=== PATIENT | female | born 1990 | race American Indian/Alaskan Native ===

== ENCOUNTER 2017-11-03 01:00 | Emergency (ER) | payer OTHER ==
[2017-11-03 01:17] VITALS: BP 126/61
[2017-11-03 01:55] LABS: Basophils # (Auto) 0.1 K/mm3 (0.0-0.1); Basophils % (Auto) 0.4 % (0.0-1.8); Eosinophils # (Auto) 0.1 K/mm3 (0.0-0.4); Eosinophils % (Auto) 0.9 % (0.0-4.3); Hematocrit 36.7 % (30.3-42.9); Hemoglobin 12.7 gm/dl (10.1-14.3); Lymphocytes # (Auto) 2.3 K/mm3 (1.2-5.4); Lymphocytes % (Auto) 16.9 % (13.4-35.0); Mean Corpuscular HGB Conc 35 % (30-34); Mean Corpuscular Hemoglobin 32 pg (28-32); Mean Corpuscular Volume 93 fl (79-97); Monocytes # (Auto) 0.8 K/mm3 (0.0-0.8); Monocytes % (Auto) 5.8 % (0.0-7.3); Platelet Count 152 K/mm3 (140-440); Red Blood Count 3.93 M/mm3 (3.65-5.03); Red Cell Distribution Width 12.1 % (13.2-15.2)
[2017-11-03 02:07] LABS: Bilirubin,Urine NEG (Negative); Blood,Urine LG (Negative); Color,Urine Red (Yellow); Mucus,Urine FEW /HPF; Nitrite,Urine NEG (Negative); Protein,Urine <15 mg/dL mg/dL (Negative); RBC,Urine < 1.0 /HPF (0.0-6.0); Urobilinogen,Urine < 2.0 mg/dL (<2.0)
--- NOTE | 2017-11-03 02:59 | Ultrasound Report ---
FINAL REPORT EXAM: US OB TRANSVAGINAL HISTORY: Vaginal bleeding 6 wks TECHNIQUE: Transvaginal imaging was obtained the pelvis including Doppler interrogation of the adnexa and uterus. FINDINGS: The uterus is retroverted measuring 9.8 cm x 6.5 cm x 7.5 cm. Within the uterus is a gestational sac which contains a yolk sac and pole. The crown-rump length of the pole is 4.1 millimeters corresponding to a 6 week 1 day IUP. The heart rate is 122 BPM. Adjacent to the gestational sac is a hypoechoic area compatible with a moderate sized subchorionic hemorrhage. Free fluid is not seen. The maternal left ovary is normal size and echotexture measuring 3.7 cm x 2.2 cm x 1.9 cm. The right ovary measures 4.4 cm x 3.8 cm x 2.9 cm. Within the right ovary is a cyst measuring 2.1 cm in diameter compatible with corpus luteum cyst. IMPRESSION: Single viable IUP 6 weeks 1 day. heart is 122 BPM. Moderate size subchorionic hemorrhage. 2.1 cm cyst the right ovary most likely representing a corpus luteum cyst
--- NOTE | 2017-11-03 03:00 | Ultrasound Report ---
FINAL REPORT EXAM: US OB < = 14 WEEKS FETUS HISTORY: Vaginal bleeding 6 wks TECHNIQUE: Transabdominal imaging was obtained of the pelvis. FINDINGS: The uterus measures 9.8 cm x 6.5 cm x 7.5 cm. Within the uterus is a gestational sac which contains a yolk sac and embryo. The crown-rump length is 4.1 millimeters corresponding to a 6 week 1 day IUP. The heart is 122 BPM. Adjacent to the gestational sac is a hypoechoic area corresponding to a moderate sized subchorionic hemorrhage. Free fluid is not seen. The maternal left ovary is normal size contour and echotexture measuring 3.7 cm x 2.2 cm x 1.9 cm. The right ovary measures 4.4 cm x 3.8 cm x 2.9 cm. With the right ovary is a cyst measuring 2.1 cm in diameter. IMPRESSION: Single viable IUP, 6 weeks 1 day. heart is 122 bpm. Moderate size subchorionic hemorrhage. 2.1 cm cyst in the right ovary consistent with a corpus luteum cyst.
== END 2017-11-03 02:30 | disposition left against medical advice (07) ==
LOC: ED 01:00
DX: O46.8X1 Other antepartum hemorrhage, first trimester (principal); Z3A.01 Less than 8 weeks gestation of pregnancy
CPT/HCPCS: 36415; 76801; 76817; 81001; 84702; 85025; 86850; 86900; 86901

== ENCOUNTER 2020-03-31 05:05 | Emergency (ER) | payer MEDICAID ==
[2020-03-31 05:37] LABS: Basophils # (Auto) 0.1 K/mm3 (0.0-0.1); Basophils % (Auto) 0.5 % (0.0-1.8); Eosinophils # (Auto) 0.1 K/mm3 (0.0-0.4); Eosinophils % (Auto) 1.5 % (0.0-4.3); Hematocrit 36.1 % (30.3-42.9); Hemoglobin 12.6 gm/dl (10.1-14.3); Lymphocytes # (Auto) 2.4 K/mm3 (1.2-5.4); Lymphocytes % (Auto) 24.4 % (13.4-35.0); Mean Corpuscular HGB Conc 35 % (30-34); Mean Corpuscular Volume 94 fl (79-97); Monocytes # (Auto) 0.6 K/mm3 (0.0-0.8); Monocytes % (Auto) 6.3 % (0.0-7.3); Platelet Count 136 K/mm3 (140-440); Red Blood Count 3.84 M/mm3 (3.65-5.03); Red Cell Distribution Width 11.7 % (13.2-15.2)
[2020-03-31] MEDS ORDERED: SODIUM CHLORIDE 0.9% 1000 ML 1,000 ML ONE (05:45)
[2020-03-31] MEDS ORDERED: SODIUM CHLORIDE 0.9% 1000 ML 1,000 ML IV ONE (05:47)
[2020-03-31 06:10] LABS: Bilirubin,Urine NEG (Negative); Blood,Urine MOD (Negative); Color,Urine Yellow (Yellow); Mucus,Urine 1+ /HPF; Protein,Urine <15 mg/dL mg/dL (Negative); Urobilinogen,Urine < 2.0 mg/dL (<2.0)
--- NOTE | 2020-03-31 07:25 | Ultrasound Report ---
ULTRASOUND OBSTETRIC Indication: VAG BLEEDING Findings: There is a single, living intrauterine . [place]-rump length = 4.2 cm = 11 weeks, 1 day(s). heart rate is 161 beats per minute. The ovaries are normal. There is no free fluid. Impression: Single, living intrauterine with estimated sonographic age of 11 weeks, 1 day(s). Signer Name: Abraham Sandy MD Signed: 03/31/2020 7:20 AM Workstation Name: [employer]
--- NOTE | 2020-03-31 07:31 | Emergency Department Report ---
ED HPI - General Chief complaint: Vaginal Bleeding Stated complaint: VAGINAL BLEEDING(11 WEEKS PREG) Time Seen by Provider: 03/31/20 06:22 Source: patient Mode of arrival: Ambulatory Limitations: No Limitations - History of Present Illness Initial comments: 29-year female presents to the hospital currently 11 weeks complaining of waking up this morning with vaginal bleeding. Patient has some mild vaginal bleeding earlier today and now has some residual spotting. Patient having abdominal bloating feeling and back pressure but denies cramping or pain. This is her fifth . She has 1 living child and history of 2 miscarriage and 1 . She has initiated care with my [facility] DESIGN [facility]INEER and has had 2 previous ultrasound showing IUP during this . Patient is Rh- - Related Data Previous Rx's Medication Instructions Recorded Last Taken Type traMADoL [Ultram 50 MG tab] 50 mg PO Q6HR PRN #16 tablet 08/29/15 Unknown Rx Allergies Allergy/AdvReac Type Severity Reaction Status Date / Time No Known Allergies Allergy Verified 08/28/15 23:07 ED Review of Systems ROS: Stated complaint: VAGINAL BLEEDING(11 WEEKS PREG) Other details as noted in HPI Comment: All other systems reviewed and negative ED Past Medical Hx - Past Medical History Previous Medical History?: No Additional medical history: RH Negative - Surgical History Past Surgical History?: No - Social History Smoking Status: Never Smoker Substance Use Type: None - Medications Home Medications: Home Medications Medication Instructions Recorded Confirmed Last Taken Type traMADoL [Ultram 50 MG tab] 50 mg PO Q6HR PRN #16 tablet 08/29/15 Unknown Rx ED Physical Exam - General Limitations: No Limitations - Other Other exam information: General: No acute distress Head: Atraumatic Eyes: normal appearance ENT: Moist mucous membranes Neck: Normal appearance, no midline tenderness Chest: Clear to auscultation bilaterally CV: Regular rate and rhythm Abdomen: Soft, normal bowel sounds, nontender, nondistended, no rebound or guarding Back: Normal inspection Extremity: Normal inspection, full range of motion Neuro: Alert O x 3, no facial asymmetry, speech clear, no gross motor sensory deficit Psych: Appropriate behavior Skin: No rash ED Course Vital Signs 03/31/20 03/31/20 03/31/20 05:10 05:34 06:12 Temperature 98.7 F Pulse Rate 70 83 78 Respiratory 18 18 16 Rate Blood Pressure 98/48 Blood Pressure 86/49 114/61 [Right] O2 Sat by Pulse 98 100 100 Oximetry ED Medical Decision Making - Lab Data Result diagrams: 03/31/20 05:22 Lab Results 03/31/20 03/31/20 03/31/20 Range/Units 05:22 05:22 05:22 WBC 9.7 (4.5-11.0) K/mm3 RBC 3.84 (3.65-5.03) M/mm3 Hgb 12.6 (10.1-14.3) gm/dl Hct 36.1 (30.3-42.9) % MCV 94 (79-97) fl MCH 33 H (28-32) pg MCHC 35 H (30-34) % RDW 11.7 L (13.2-15.2) % Plt Count 136 L (140-440) K/mm3 Lymph % (Auto) 24.4 (13.4-35.0) % Mcd[place]ough % (Auto) 6.3 (0.0-7.3) % Eos % (Auto) 1.5 (0.0-4.3) % Baso % (Auto) 0.5 (0.0-1.8) % Lymph # 2.4 (1.2-5.4) K/mm3 Mcdonough # 0.6 (0.0-0.8) K/mm3 Eos # 0.1 (0.0-0.4) K/mm3 Baso # 0.1 (0.0-0.1) K/mm3 Seg Neutrophils % 67.3 (40.0-70.0) % Seg Neutrophils # 6.5 (1.8-7.7) K/mm3 HCG, Quant 81533 H (0-4) mIU/mL Urine Color (Yellow) Urine Turbidity (Clear) Urine pH (5.0-7.0) Ur Specific [place] (1.003-1.030) Urine Protein (Negative) mg/dL Urine Glucose (UA) (Negative) mg/dL Urine Ketones (Negative) mg/dL Urine Blood (Negative) Urine Nitrite (Negative) Urine Bilirubin (Negative) Urine Urobilinogen (<2.0) mg/dL Ur Leukocyte Esterase (Negative) Urine WBC (Auto) (0.0-6.0) /HPF Urine RBC (Auto) (0.0-6.0) /HPF U Epithel Cells (Auto) (0-13.0) /HPF Urine Mucus /HPF Blood Type B NEGATIVE Antibody Screen Negative 03/31/20 Range/Units Unknown WBC (4.5-11.0) K/mm3 RBC (3.65-5.03) M/mm3 Hgb (10.1-14.3) gm/dl Hct (30.3-42.9) % MCV (79-97) fl MCH (28-32) pg MCHC (30-34) % RDW (13.2-15.2) % Plt Count (140-440) K/mm3 Lymph % (Auto) (13.4-35.0) % Mcd[place]ough % (Auto) (0.0-7.3) % Eos % (Auto) (0.0-4.3) % Baso % (Auto) (0.0-1.8) % Lymph # (1.2-5.4) K/mm3 Mcdonough # (0.0-0.8) K/mm3 Eos # (0.0-0.4) K/mm3 Baso # (0.0-0.1) K/mm3 Seg Neutrophils % (40.0-70.0) % Seg Neutrophils # (1.8-7.7) K/mm3 HCG, Quant (0-4) mIU/mL Urine Color Yellow (Yellow) Urine Turbidity Clear (Clear) Urine pH 5.0 (5.0-7.0) Ur Specific [place] 1.020 (1.003-1.030) Urine Protein <15 mg/dl (Negative) mg/dL Urine Glucose (UA) Neg (Negative) mg/dL Urine Ketones Neg (Negative) mg/dL Urine Blood Mod (Negative) Urine Nitrite Neg (Negative) Urine Bilirubin Neg (Negative) Urine Urobilinogen < 2.0 (<2.0) mg/dL Ur Leukocyte Esterase Neg (Negative) Urine WBC (Auto) 2.0 (0.0-6.0) /HPF Urine RBC (Auto) 9.0 (0.0-6.0) /HPF U Epithel Cells (Auto) 1.0 (0-13.0) /HPF Urine Mucus 1+ /HPF Blood Type Antibody Screen - Radiology Data Radiology results: report reviewed ULTRASOUND OBSTETRIC Indication: VAG BLEEDING Findings: There is a single, living intrauterine . [place]-rump length = 4.2 cm = 11 weeks, 1 day(s). heart rate is 161 beats per minute. The ovaries are normal. There is no free fluid. Impression: Single, living intrauterine with estimated sonographic age of 11 weeks, 1 day(s). - Medical Decision Making Patient had vaginal bleeding this morning which has decreased. Ultrasound confirms IUP. Patient received RhoGam in the ED. Provide a copy of labs ultrasound report for outpatient follow-up with [facility] Critical Care Time: No Critical care attestation.: If time is entered above; I have spent that time in minutes in the direct care of this critically ill patient, excluding procedure time. ED Disposition Clinical Impression: Threatened miscarriage, Rh negative status during , 11 weeks gestation of Disposition: - TO HOME OR SELFCARE Is pt being admited?: No Condition: Stable Instructions: Rho(D) Immune Globulin (Injection), Threatened Miscarriage (ED) Additional Instructions: Pelvic rest i.e. no sex is recommended. Follow-up with with my [facility] DESIGN ENG[facility]ER. Take the copy of the results provided to your follow-up visit. Return if symptoms worsen as indicated by your discharge instructions. Referrals: [facility] [Provider Group] - 3-5 Days Time of Disposition: 08:20
[2020-03-31 09:09] VITALS: BP 107/57
== END 2020-03-31 10:00 | disposition home or self-care (01) ==
LOC: ED 05:05
DX: O20.0 Threatened abortion (principal); Z3A.11 11 weeks gestation of pregnancy; O36.0191 Maternal care for anti-D [Rh] antibodies, unspecified trimester, fetus 1; Z79.899 Other long term (current) drug therapy
CPT/HCPCS: 36415; 76801; 81001; 84702; 85025; 86850; 86900; 86901; 96372; 99284; J2790; J7030

== ENCOUNTER 2020-10-21 06:52 | Inpatient (IN) | payer MEDICAID ==
[2020-10-21] MEDS ORDERED: LACTATED RINGERS 1,000 ML ONE (07:20)
[2020-10-21] MEDS ORDERED: OXYTOCIN DRIP 30,000 MILLIUNITS/500 ML BAG IV ONE (07:20)
[2020-10-21] MEDS ORDERED: fentaNYL 100 MCG/2 ML INJ ONE (07:42)
[2020-10-21] MEDS ORDERED: ePHEDrine SULFATE 50 MG/1 ML INJ IV PRN (07:44)
[2020-10-21] MEDS ORDERED: NalbUPHINE 10 MG/1 ML INJ IV PRN (07:44)
[2020-10-21] MEDS ORDERED: fentaNYL 100 MCG/2 ML INJ IV PRN (07:44)
[2020-10-21] MEDS ORDERED: LIDOCAINE (2%) 20 MG/1 ML VIAL 20 ML MDV INFILTRATI ONE (07:44)
[2020-10-21] MEDS ORDERED: NALOXONE 0.4 MG/1 ML INJ IV PRN (07:44)
[2020-10-21] MEDS ORDERED: ACETAMINOPHEN 325 MG TAB PO PRN (07:44)
[2020-10-21] MEDS ORDERED: PROMETHAZINE 25 MG TAB PO PRN (07:44)
[2020-10-21] MEDS ORDERED: TERBUTALINE 1 MG/1 ML INJ SUB-Q PRN (07:44)
[2020-10-21] MEDS ORDERED: BUTORPHANOL 2 MG/1 ML INJ IV PRN ×2 (07:44)
[2020-10-21] MEDS ORDERED: LACTATED RINGERS 1,000 ML IV SCH (07:45)
[2020-10-21] MEDS ORDERED: OXYTOCIN DRIP 30 UNITS/500 ML BAG IV SCH ×3 (08:00→11:31)
[2020-10-21 08:24] LABS: Hematocrit 34.8 % (30.3-42.9); Hemoglobin 12.2 gm/dl (10.1-14.3); Mean Corpuscular HGB Conc 35 % (30-34); Mean Corpuscular Volume 94 fl (79-97); Platelet Count 87 K/mm3 (140-440); Red Blood Count 3.69 M/mm3 (3.65-5.03)
--- NOTE | 2020-10-21 08:44 | History and Physical Report ---
History of Present Illness Date of examination: 10/21/20 Chief complaint: labor History of present illness: EDC Confirmation: 10/23/2020 Past History : 6 Term Births: 1 Premature Births: 0 Living Children: 1 Para: 1 Mult. Births: 0 Prev : 0 Aborta: 0 Elect. Ab: 2 Spont. Ab: 2 Ectopics: 0 # 1 Delivery date: 2009 Weeks Gestation: term labor: no Delivery type: Anesthesia type: none Delivery location: [facility] Sex: Male weight: 8-6 Risk Factors: Smoked Tobacco Use: Never smoker Smokeless Tobacco Use: Never Passive smoke exposure: no Drug use: no HIV high-risk behavior: no Alcohol use: no Seatbelt use: preg-reimbursement counselor % Sun Exposure: rarely Family History Risk Factors: Family History of NH in females < 65 years old: no Dietary Counseling: pn yes Past Medical History: Reviewed history and no changes required: Negative Past Medical History Past Surgical History: Reviewed history and no changes required: D&C X 2 Past Medical History Anesthesia Complications: negative Anemia: negative Autoimmune Disorder: negative Bleeding Disorder: negative Blood Transfusions: negative Breast Disease: negative Diabetes: negative Heart Disease: negative Hypertension: negative Hepatitis/Liver Disease: negative Kidney Disease/UTI: negative Neurologic/Epilepsy/Migraines: negative Phlebitis/Varicosities: negative Psychiatric: negative Pulmonary Disease/Asthma: negative Thyroid Disease: negative Hospitalizations: negative Surgery (Non-plant custodian): D&C X 2 Abnormal PAP: negative JULIANNA Exposure: negative Infertility: negative Uterine Anomaly: negative Uterine Surgery (not C/S): negative Other Gynecologic Problems: negative Family Hx: Cancer, High blood pressure Infection History Hx of STD: gonorrhea HIV Risk Eval: no Hepatitis B Risk Eval: low risk Personal hx. of genital herpes: no Partner hx. of genital herpes: no Rash, Viral, or Febrile illness since last LMP? no Varicella/Chicken Pox Status: Previous Disease TB Risk: no Genetic History Congenital Heart Defect: Mom: no Dad: no [place] Disease: Mom: no Dad: no Thalassemia Mom: no Dad: no Neural Tube Defect Mom: no Dad: no Down's Syndrome Mom: no Dad: no Smooth-Sachs Mom: no Dad: no Sickle Cell Disease/Trait Mom: no Dad: no Hemophilia Mom: no Dad: no Muscular Dystrophy Mom: no Dad: no Cystic Fibrosis Mom: no Dad: no [place] Chorea Mom: no Dad: no Mental Retardation Mom: no Dad: no Fragile X Mom: no Dad: no Other Genetic/Chromosomal Disorder Mom: no Dad: no Child w/other defect Mom: no Dad: no Enviromental Exposures Xray Exposure: no Medication, drug, or alcohol use since LMP: no Chemical/Other Exposure: no Exposure to Cat Liter: no Hx of Parvovirus (Fifth Disease): no Occupational Exposure to Children: none Current Allergies: No known allergies Past History Past Medical History: other (see HPI) Past Surgical History: other (see HPI) CRAB PICKER History: other (see HPI) Family/Genetic History: other (see HPI) Social history: no significant social history - Obstetrical History Expected Date of Delivery: 10/23/20 Actual Gestation: 39 Week(s) 5 Day(s) : 6 Para: 1 Hx # Term Pregnancies: 1 Number of Pregnancies: 0 Spontaneous Abortions: 2 Induced : 2 Number of Living Children: 1 Medications and Allergies Allergies Allergy/AdvReac Type Severity Reaction Status Date / Time No Known Allergies Allergy Verified 08/28/15 23:07 Home Medications Medication Instructions Recorded Confirmed Last Taken Type traMADoL [Ultram 50 MG tab] 50 mg PO Q6HR PRN #16 tablet 08/29/15 Unknown Rx Active Meds: Active Medications Acetaminophen (Acetaminophen 325 Mg Tab) 650 mg PO Q4H PRN PRN Reason: Pain, Mild (1-3) Butorphanol Tartrate (Butorphanol 2 Mg/1 Ml Inj) 1 mg IV Q2H PRN PRN Reason: Pain, Moderate(4-6) LABOR PAIN Butorphanol Tartrate (Butorphanol 2 Mg/1 Ml Inj) 2 mg IV Q2H PRN PRN Reason: Pain , Severe (7-10) Ephedrine Sulfate (Ephedrine Sulfate 50 Mg/1 Ml Inj) 10 mg IV Q2M PRN PRN Reason: Hypotension Fentanyl (Fentanyl 100 Mcg/2 Ml Inj) 100 mcg IV Q2H PRN PRN Reason: Pain,Severe (7-10) LABOR PAIN Oxytocin/Sodium Chloride (Pitocin/Ns 30 Unit/500ml) 30 units in 500 mls @ 2 ml s/hr IV TITR TREVOR; Protocol Lactated Ringer's (Lactated Ringers) 1,000 mls @ 125 mls/hr IV DIRECT TREVOR Oxytocin/Sodium Chloride (Pitocin/Ns 30 Unit/500ml) 30 units in 500 mls @ 40 mls/hr IV TITR TREVOR; Protocol Stop: 10/21/20 20:29 Ampicillin Sodium (Ampicillin/Ns 1 Gm/50 Ml) 1 gm in 50 mls @ 100 mls/hr IV Q4H [facility]; Protocol Mineral Oil (Mineral Oil 30 Ml Oral Liqd) 30 ml PO QHS PRN PRN Reason: Constipation Nalbuphine HCl (Nalbuphine 10 Mg/1 Ml Inj) 10 mg IV Q2H PRN PRN Reason: Pain, Moderate (4-6) Naloxone HCl (Naloxone 0.4 Mg/1 Ml Inj) 0.1 mg IV Q2MIN PRN PRN Reason: Res Rate </= 8 or 02 SAT < 92% Promethazine HCl (Promethazine 25 Mg Tab) 25 mg PO Q6H PRN PRN Reason: Nausea And Vomiting Terbutaline Sulfate (Terbutaline 1 Mg/1 Ml Inj) 0.25 mg SUB-Q ONCE PRN PRN Reason: Hyperstimulation/Hypertonicity Review of Systems All systems: negative - Vital Signs Vital signs: Vital Signs Pulse Pulse Ox 84 99 10/21/20 07:07 10/21/20 07:07 Temp Pulse Resp BP Pulse Ox 85 121/56 97 10/21/20 08:35 10/21/20 08:35 10/21/20 08:27 - Physical Exam Breasts: Positive: normal Cardiovascular: Regular rate Lungs: Positive: Normal air movement Abdomen: Positive: normal appearance, soft Genitourinary (Female): Positive: normal external genitalia, normal perenium Vulva: both: normal Vagina: Positive: normal moisture Uterus: Positive: normal size, normal contour Anus/Rectum: Positive: hemorrhoids Extremities: Positive: normal Deep Tendon Reflex Grade: Normal +2 - Obstetrical FHR: category 1 Uterine Contraction Monitor Mode: External Cervical Dilatation: 10 Cervical Effacement Percentage: 100 station: +2 Uterine Contraction Frequency (min): 1.5-3 Uterine Contraction Duration: 60 Uterine Contraction Pattern: Regular Uterine Tone Measurement Phase: Contraction Uterine Contraction Intensity: Strong/Firm Results Result Diagrams: 10/21/20 07:50 Abnormal lab results 10/21/20 Range/Units 07:50 WBC 12.8 H (4.5-11.0) K/mm3 MCH 33 H (28-32) pg MCHC 35 H (30-34) % RDW 13.0 L (13.2-15.2) % Plt Count 87 L (140-440) K/mm3 All other labs normal. Assessment and Plan 30 y/o presented in active labor. anticipate delivery - Patient Problems (1) 39 weeks gestation of Current Visit: Yes Status: Acute (2) Rh negative, delivered, current hospitalization Current Visit: Yes Status: Acute (3) Thrombocytopenia Current Visit: Yes Status: Acute
--- NOTE | 2020-10-21 08:46 | Procedure Note ---
OB Delivery Note - Delivery Date of Delivery: 10/21/20 [employer] Worker: SARWAT MALIK Estimated blood loss: 200cc - Vaginal Delivery presentation: vertex Delivery position: OA (ANITA, Left shoulder anterior) Intrapartum events: none, precipitous labor- <3hr Delivery induction: none Delivery monitor: external FHT, external uterine Route of delivery: Delivery placenta: spontaneous Delivery cord: 3 umbilical vessels Episiotomy: none Delivery laceration: none Anesthesia: none Delivery comments: female born over intact perineum, no shoulder dystocia. placed on maternal abdomen for skin to skin. 3 vessel cord clamped and cut after cessation of pulsation. cord blood collected. placenta del intact and complete. no lacerations to repair. EBL 200. apgars 8/9, wt 8#12oz. mother and baby LDR stable. - Infant A at 1 minute: 8 at 5 minutes: 9 Infant Gender: Female (8#12oz)
[2020-10-21] MEDS ORDERED: ONDANSETRON 4 MG/2 ML INJ IV PRN (11:31)
[2020-10-21] MEDS ORDERED: BENZOCAINE/MENTHOL 20/0.5% TOP SPRAY 56 GM TP PRN (11:31)
[2020-10-21] MEDS ORDERED: LANOLIN/ZINC/DIMETHICONE (LANSINOH) 7 GM TP PRN (11:31)
[2020-10-21] MEDS ORDERED: WITCH HAZEL/ GLYCERIN PAD TP PRN (11:31)
[2020-10-21] MEDS ORDERED: diphenhydrAMINE 25 MG CAP PO PRN (11:31)
[2020-10-21] MEDS ORDERED: PROMETHAZINE 25 MG RECT SUPP PR PRN (11:31)
[2020-10-21] MEDS ORDERED: MAGNESIUM HYDROXIDE (MOM) ORAL LIQD UDC PO PRN (11:31)
[2020-10-21] MEDS: IBUPROFEN 800 MG TAB PO SCH ×2 (11:59→18:10)
[2020-10-21] MEDS: PRENATAL VIT27-FE FUMARATE-FOLIC ACID VIT TAB PO SCH (11:59)
[2020-10-21] MEDS: FERROUS SULFATE 325 MG TAB PO SCH ×2 (11:59→22:39)
[2020-10-21] MEDS ORDERED: AMPICILLIN/NS 1 GM/50 ML 1 GM/50 ML BAG IV SCH (12:00)
[2020-10-21 20:32] LABS: Hematocrit 34.5 % (30.3-42.9); Hemoglobin 11.9 gm/dl (10.1-14.3)
[2020-10-21] MEDS ORDERED: MINERAL OIL 30 ML ORAL LIQD PO PRN (22:00)
[2020-10-22] MEDS: IBUPROFEN 800 MG TAB PO SCH (05:36)
[2020-10-22] MEDS ORDERED: DIPHtheria,PERTUSSIS(ACELL),TETANUS VACCINE/PF 0.5 ML VIAL IM ONE (06:00)
[2020-10-22 08:44] VITALS: BP 122/58
[2020-10-22] MEDS: ACETAMINOPHEN 500 MG TAB PO PRN ×2 (08:45→15:06)
[2020-10-22] MEDS ORDERED: DOCUSATE SODIUM 100 MG CAP PO SCH (09:00)
--- NOTE | 2020-10-22 09:27 | Discharge Summary ---
Providers - Providers Date of Admission: 10/21/20 09:36 Date of discharge: 10/22/20 (desires d/c home) Attending physician: TIFFANIE DAVILA Primary care physician: TIFFANIE DAVILA Hospitalization Reason for admission: labor Condition: Good Pertinent studies: H&H 11.9/34.5 Procedures: Hospital course: uncomplicated and course Disposition: DC-01 TO HOME OR SELFCARE - Discharge Diagnoses (1) (normal spontaneous vaginal delivery) Status: Acute Core Measure Documentation - Palliative Care Palliative Care/ Comfort Measures: Not Applicable - Core Measures Any of the following diagnoses?: none Exam - Constitutional Vitals: Temp Pulse Resp BP Pulse Ox 98 F 88 18 122/58 99 10/22/20 07:44 10/22/20 07:44 10/22/20 07:44 10/22/20 07:44 10/22/20 07:44 General appearance: Present: no acute distress, well-nourished - EENT Eyes: Present: PERRL ENT: hearing intact, clear oral mucosa - Neck Neck: Present: supple, normal ROM - Respiratory Respiratory effort: normal Respiratory: bilateral: CTA - Cardiovascular Rhythm: regular Heart Sounds: Absent: rub, click - Extremities Extremities: No edema Peripheral Pulses: within normal limits - Abdominal General gastrointestinal: Present: soft, non-tender, non-distended, normal bowel sounds Female genitourinary: Present: normal - Integumentary Integumentary: Present: clear, warm, dry - Musculoskeletal Musculoskeletal: gait normal, strength equal bilaterally - Psychiatric Psychiatric: appropriate mood/affect, intact judgment & insight - Neurologic Neurologic: CNII-XII intact, moves all extremities - Additional findings Additional findings: , lochia scant, fundus firm Plan Activity: no restrictions Diet: regular Follow up with: TIFFANIE DAVILA MD [Primary Care Provider] - 11/22/20 (Congratulations!! Please call [phone] to schedule your visit in 4 weeks. Call for any questions or concerns. ) Prescriptions: Ibuprofen [Motrin 800 MG tab] 800 mg PO Q8HR PRN #30 tablet PRN Reason: Pain
[2020-10-22] MEDS: FERROUS SULFATE 325 MG TAB PO SCH (10:34)
[2020-10-22] MEDS: PRENATAL VIT27-FE FUMARATE-FOLIC ACID VIT TAB PO SCH (10:34)
== END 2020-10-22 15:15 | disposition home or self-care (01) | DRG 775 ==
LOC: TRG 06:52 → APU 06:53 → LD 07:52 → TRG 09:35 → LD 09:36 → OB 10:57
PROVIDERS: ADMIT Obstetrics & Gynecology; ATTEND Obstetrics & Gynecology
PROC: 10E0XZZ Delivery of Products of Conception, External Approach (ICD-10-PCS; principal; 2020-10-21)
PROC: 3E0234Z Introduction of Serum, Toxoid and Vaccine into Muscle, Percutaneous Approach (ICD-10-PCS; 2020-10-21)
PROC: 3E0234Z Introduction of Serum, Toxoid and Vaccine into Muscle, Percutaneous Approach (ICD-10-PCS; 2020-10-22)
DX: O62.3 Precipitate labor (principal); O75.89 Other specified complications of labor and delivery; O99.12 Other diseases of the blood and blood-forming organs and certain disorders involving the immune mechanism complicating childbirth; D69.6 Thrombocytopenia, unspecified; Z67.91 Unspecified blood type, Rh negative; Z3A.39 39 weeks gestation of pregnancy; Z37.0 Single live birth; Z23 Encounter for immunization
CPT/HCPCS: 36415; 59025; 85014; 85018; 85027; 85461; 86592; 86850; 86900; 86901; 90715; 96360; 96361; 96365; 96366; 96374; G0378; J2590; J2790; J3010; J7120